=== PATIENT | female | born 1965 | race Caucasian/White ===

== ENCOUNTER 2019-11-24 08:06 | Day surgery (SDC) | payer OTHER ==
[2019-11-24] MEDS ORDERED: Ringers Lactate 1,000 ML IV ONE ×2 (08:30→09:56)
[2019-11-24] MEDS ORDERED: ONDANSETRON 4 MG/2 ML VIAL ONE (09:18)
[2019-11-24] MEDS ORDERED: LIDOCAINE 1% MPF 5 ML VIAL ONE (09:35)
[2019-11-24] MEDS ORDERED: MIDAZOLAM HCL 2 MG/2 ML INJ ONE (09:35)
[2019-11-24] MEDS ORDERED: propofoL 200 MG/20 ML VIAL IV ONE ×3 (09:35→10:40)
--- NOTE | 2019-11-24 10:32 | ENDO RPT ---
[address], [address] EGD PROCEDURE REPORT EXAM DATE: 11/24/2019 PATIENT NAME: Preeti Maldonado MR#: [id number] BIRTHDATE: 1965 ATTENDING: Jerad Domingo DR STATUS: outpatient [employer]: Dorothy Unger CST, Magali Teran RN, and Soto Kent [facility] INDICATIONS: The patient is a 54 yr old Female here for an EGD due to mid epigastric abdominal pain PROCEDURE PERFORMED: EGD with biopsy for H. pylori MEDICATIONS: Per Anesthesia. TOPICAL ANESTHETIC: none CONSENT: The patient understands the risks and benefits of the procedure and understands that these risks include, but are not limited to: sedation, allergic reaction, infection, perforation and/or bleeding. Alternative means of evaluation and treatment include, among others: physical exam, x-rays, and/or surgical intervention. The patient elects to proceed with this endoscopic procedure. DESCRIPTION OF PROCEDURE: During intra-op preparation period all mechanical medical equipment was checked for proper function. Hand hygiene and appropriate measures for infection prevention was taken. Procedure, possible complications, and alternatives including but not limited to the possibility of bleeding, perforation, tear, infection, sepsis, need for surgery, need for blood transfusion, and anesthesia related complications were explained to the patient. After the risks, benefits and alternatives of the procedure were thoroughly explained, Informed consent was verified, confirmed and timeout was successfully executed by the treatment team. The patient was placed in the left lateral position. The patient was anesthetized with topical anesthesia. Through the anesthetized oropharyngeal area, the scope was passed without any difficulty. The Pentax EG-[id number] ([id number]) endoscope was introduced through the mouth and advanced to the first portion of the duodenum. Retroflexed views revealed a small hiatal hernia. The gastroscope was then slowly withdrawn and removed. Mild Atrophic gastritis was found in the body and the antrum of the stomach. A biopsy for H. pylori was taken. ADVERSE EVENTS: There were no complications. However patient had desaturated several times making procedure challenging. She also had coughing fits throughout the EGD. IMPRESSIONS: Mild Atrophic gastritis was found in the body and the antrum of the stomach RECOMMENDATIONS: 1. anti-reflux regimen 2. await biopsy results 3. acid suppression therapy 4. avoid NSAIDS 5. follow-up: office 2 week(s) 6. follow-up of helicobacter pylori status, treat if indicated REPEAT EXAM: Jerad Domingo DR eSigned: Jerad Domingo DR 11/24/2019 10:32 AM cc: CPT CODES: ICD9 CODES: PATIENT NAME: Joel Preeti Daisy MR#: [id number]
--- NOTE | 2019-11-24 10:36 | ENDO RPT ---
[address], [address] COLONOSCOPY PROCEDURE REPORT EXAM DATE: 11/24/2019 PATIENT NAME: Preeti Maldonado MR #: [id number] BIRTHDATE: 1965 ATTENDING: Jerad Domingo DR STATUS: outpatient RETAIL ASSISTANT: Magali Teran RN, Soto Bright [facility], and Dorothy Unger CST INDICATIONS: The patient is a 54 yr old Female here for a colonoscopy due to colon cancer screening PROCEDURE PERFORMED: Colonoscopy with biopsy MEDICATIONS: Per Anesthesia. ESTIMATED BLOOD LOSS: None CONSENT: The patient understands the risks and benefits of the procedure and understands that these risks include, but are not limited to: sedation, allergic reaction, infection, perforation and/or bleeding. Alternative means of evaluation and treatment include, among others: physical exam, x-rays, and/or surgical intervention. The patient elects to proceed with this endoscopic procedure. DESCRIPTION OF PROCEDURE: During intra-op preparation period all mechanical medical equipment was checked for proper function. Hand hygiene and appropriate measures for infection prevention was taken. Procedure, possible complications, alternatives including, but not limited to possibility of bleeding, perforation, tear, infection, sepsis, need for surgery, need for blood transfusion, were explained to the patient. After the risks, benefits and alternatives of the procedure were thoroughly explained, Informed consent was verified, confirmed and timeout was successfully executed by the treatment team. The patient was placed in the left lateral position. A digital rectal exam was performed and revealed internal hemorrhoids and A digital rectal exam was performed and revealed external hemorrhoids. After appropriate level of anesthesia, the scope was passed. The EC-[id number] ([id number]), EC-[id number] ([id number]), and EC-[id number] ([id number]) endoscope was introduced through the anus and advanced to the cecum, which was identified by both the appendix and ileocecal valve. The quality of the prep was poor. The instrument was then slowly withdrawn as the colon was fully examined. Scope withdrawal time was 11 minutes. COLON FINDINGS: There was mild diverticulosis noted in the sigmoid colon and right colon with associated inflammatory changes. No bleeding was noted from the diverticulosis. Retroflexed views revealed no abnormalities. The scope was then completely withdrawn from the patient and the procedure terminated. ADVERSE EVENTS: There were no complications. IMPRESSIONS: There was mild diverticulosis noted in the sigmoid colon and right colon RECOMMENDATIONS: 1. follow-up: office 2 week(s) 2. await biopsy results 3. avoid NSAIDS for 2 weeks 4. See EGD report. 5. Monitor for any evidence of rectal bleeding. 6. yearly hemoccult starting in 4 years 7. hemorrhoidal hygiene 8. low fiber / diverticular diet RECALL: Return in 5 year(s) for Colonoscopy, pending biopsy results. Pending Biopsy Jerad Domingo DR eSigned: Jerad Domingo DR 11/24/2019 10:35 AM cc: CPT CODES: ICD9 CODES: PATIENT NAME: Preeti Maldonado MR#: [id number]
[2019-11-24 11:38] VITALS: TEMP 97; O2SAT 100
[2019-11-24 11:40] VITALS: BP 127/77
== END 2019-11-24 11:27 | disposition home or self-care (01) ==
LOC: OR 08:06
PROVIDERS: ATTEND Surgery
PROC: 0DBH8ZX Excision of Cecum, Via Natural or Artificial Opening Endoscopic, Diagnostic (ICD-10-PCS; 2019-11-24)
PROC: 0DB98ZX Excision of Duodenum, Via Natural or Artificial Opening Endoscopic, Diagnostic (ICD-10-PCS; principal; 2019-11-24 09:15)
PROC: 0DB68ZX Excision of Stomach, Via Natural or Artificial Opening Endoscopic, Diagnostic (ICD-10-PCS; 2019-11-24 09:15)
DX: K29.50 Unspecified chronic gastritis without bleeding (principal); K57.30 Diverticulosis of large intestine without perforation or abscess without bleeding; K64.8 Other hemorrhoids; K21.9 Gastro-esophageal reflux disease without esophagitis; Z88.6 Allergy status to analgesic agent; Z91.040 Latex allergy status; Z91.030 Bee allergy status; Z91.048 Other nonmedicinal substance allergy status; Z80.1 Family history of malignant neoplasm of trachea, bronchus and lung; Z80.3 Family history of malignant neoplasm of breast; Z80.41 Family history of malignant neoplasm of ovary; Z80.49 Family history of malignant neoplasm of other genital organs
CPT/HCPCS: 88312; 88305; 43239; 45380; J2704 ×3; J2250; J7120 ×2; J2405